=== PATIENT | female | born 1945 | race Caucasian/White ===

== ENCOUNTER → 2017-08-07 | Outpatient (CLI) | payer MEDICARE, BC | LOC: MC.RAD 09:31 | DX: Z12.31 Encounter for screening mammogram for malignant neoplasm of breast (principal) ==

== ENCOUNTER 2017-09-17 07:00 | Outpatient (RCR) | payer MEDICARE, BC | END 2017-09-17 12:44 | disposition home or self-care (01) | LOC: WSPT 07:00 | DX: M47.812 Spondylosis without myelopathy or radiculopathy, cervical region (principal) | CPT/HCPCS: G8984-GP; G8985-GP ==

== ENCOUNTER → 2018-08-20 | Outpatient (CLI) | payer MEDICARE, BC | LOC: MC.RAD 07:32 | DX: Z12.31 Encounter for screening mammogram for malignant neoplasm of breast (principal) ==

== ENCOUNTER → 2019-09-20 | Outpatient (CLI) | payer MEDICARE, BC | LOC: MC.RAD 11:01 | DX: Z12.31 Encounter for screening mammogram for malignant neoplasm of breast (principal) ==

== ENCOUNTER → 2020-09-22 | Outpatient (CLI) | payer MEDICARE, BC | LOC: MC.RAD 07:42 | DX: Z12.31 Encounter for screening mammogram for malignant neoplasm of breast (principal) ==

== ENCOUNTER → 2021-11-07 | Outpatient (CLI) | payer MEDICARE, BC | LOC: MC.RAD 06:56 | DX: Z12.31 Encounter for screening mammogram for malignant neoplasm of breast (principal) ==

== ENCOUNTER → 2022-11-08 | Outpatient (CLI) | payer MEDICARE, BC | LOC: MC.RAD 07:03 | DX: Z12.31 Encounter for screening mammogram for malignant neoplasm of breast (principal) ==

== ENCOUNTER → 2023-11-11 | Outpatient (CLI) | payer MEDICARE | LOC: MC.RAD 07:33 | DX: Z12.31 Encounter for screening mammogram for malignant neoplasm of breast (principal) ==